=== PATIENT | male | born 1975 | race Caucasian/White ===

== ENCOUNTER 2021-08-18 07:13 | Outpatient (REF) | payer SELFPAY ==
--- NOTE | ~2021-08-18 | XR_ITS ---
EXAMINATION: XR CHEST CLINICAL INFORMATION: Medical examination. COMPARISON: None TECHNIQUE: 2 views of the chest were obtained. FINDINGS: No significant abnormality is noted involving the heart, lungs, mediastinum, bony thorax or soft tissues. XR/XR chest 2V IMPRESSION: Unremarkable chest examination.
[2021-08-18 11:29] LABS: Appearance Urine CLOUDY; Color Urine YELLOW; Glucose Urine UA NEG (NEG); Leukocyte Esterase Urine NEG (NEG); Nitrite Urine NEG (NEG); PH 5.5 (5.0-8.0); Specific Gravity - Urine >= 1.030 (1.005-1.025); Urine Blood NEG (NEG); Urine Ketones NEG (NEG); Urine Protein NEG (NEG-TRACE)
[2021-08-18 11:38] LABS: Hematocrit 48.1 % (42-52); Hemoglobin 16.1 g/dl (14.0-18.0); Mean Corpuscular HGB Conc 33.5 g/dl (31.0-36.0); Mean Corpuscular Hemoglobin 30.5 pg (27.0-33.0); Mean Corpuscular Volume 91.1 fL (80-98); Mean Platelet Volume 10.4 fL (9.4-12.4); Platelet Count 338 X10*3/uL (160-400); Red Blood Count 5.28 X10*6/uL (4.60-5.80); Red Cell Distribution Width 14.2 % (11.0-16.0); White Blood Count 10.3 X10*3/uL (4.8-10.8)
[2021-08-18 12:06] LABS: Alanine Aminotransferase 19 U/L (0-40); Albumin Level 4.4 g/dL (3.5-5.0); Alkaline Phosphatase 120 U/L (39-117); Anion Gap 12 (12-20); Aspartate Amino Transferase 17 U/L (5-37); Bilirubin Total 0.4 mg/dL (0.0-1.0); Blood Urea Nitrogen 14 mg/dL (9-16); Calcium 9.1 mg/dL (8.4-10.2); Carbon Dioxide 24 mmol/L (22-29); Chloride 108 mmol/L (96-108); Cholesterol 233 mg/dL; Estimated Glomerular Filt Rate > 60; Glucose Fasting 117 mg/dL (60-99); HDL Cholesterol 44 mg/dL; LDL Cholesterol Calculated 154 mg/dl; Potassium 4.9 mmol/L (3.3-5.1); Sodium 139 mmol/L (135-145); Triglycerides 178 mg/dL
[2021-08-18 12:07] LABS: Amorphous Sediment Urine 3+ /LPF; Mucus Urine 2+ /LPF; RBC Urine 0 /HPF (0); WBC Urine 0 /HPF (0-4)
== END 2021-08-18 07:14 | disposition home or self-care (01) ==
LOC: HO.HMGCLDS 07:13
PROVIDERS: PCP Internal Medicine; Visit Provider Internal Medicine
DX: Z00.00 Encounter for general adult medical examination without abnormal findings (principal); R42 Dizziness and giddiness; R05 Cough; I10 Essential (primary) hypertension
CPT/HCPCS: 36415; 71046; 80053; 80061; 81001; 85027

== ENCOUNTER 2022-01-02 07:36 | Outpatient (REF) | payer SELFPAY ==
[2022-01-02 11:44] LABS: Estimated Average Glucose 114 mg/dL; Hemoglobin A1c % 5.6 %
[2022-01-02 12:17] LABS: Alanine Aminotransferase 17 U/L (0-40); Albumin Level 4.5 g/dL (3.5-5.0); Alkaline Phosphatase 123 U/L (39-117); Anion Gap 14 (12-20); Aspartate Amino Transferase 19 U/L (5-37); Bilirubin Total 0.7 mg/dL (0.0-1.0); Blood Urea Nitrogen 14 mg/dL (9-16); Calcium 9.5 mg/dL (8.4-10.2); Carbon Dioxide 24 mmol/L (22-29); Chloride 106 mmol/L (96-108); Cholesterol 248 mg/dL; Estimated Glomerular Filt Rate > 60; Glucose Fasting 121 mg/dL (60-99); HDL Cholesterol 39 mg/dL; LDL Cholesterol Calculated 187 mg/dl; Potassium 5.5 mmol/L (3.3-5.1); Sodium 138 mmol/L (135-145); Total Protein 7.3 g/dL (6.5-8.0); Triglycerides 112 mg/dL
== END 2022-01-02 07:37 | disposition home or self-care (01) ==
LOC: HO.HMGCLDS 07:36
PROVIDERS: Visit Provider Internal Medicine
DX: I10 Essential (primary) hypertension (principal); E78.5 Hyperlipidemia, unspecified; R73.9 Hyperglycemia, unspecified
CPT/HCPCS: 36415; 80053; 80061; 83036

== ENCOUNTER 2024-02-27 12:35 | Outpatient (AMB) | payer SELFPAY ==
--- NOTE | 2024-02-27 12:37 | A.OFFPC_ITS ---
Vital Signs 02/27/24 12:38 Height 5 ft 10 in Weight 230 lb BMI 33.0 BP 124/74 Blood Pressure Location Rt brachial Position Sitting Pulse 97 Pulse Source Pulse Oximeter Pulse Oximetry (%) 96 Oxygen Delivery Method Room Air Intake Visit Reasons: L knee pain Intake Note: Pt is here today for a sick visit. Pt c/o L knee pain for couple of months. Pt states that since Saturday his knee was swollen. Pt states that its painful to the touch. Allergies No Known Allergies Allergy (Verified 01/04/22 08:54) Medication List - Last Reconciled 02/27/24 by Tonja Martínez MD meloxicam 15 mg PO DAILY Tobacco use date assessed: 02/27/24 HPI L knee pain HPI Details Pt c/o L knee pain swelling and redness started after prolonged kneeling at work 3 days ago. patient took 81 mg of aspirin 3 times a day for 2 days and the redness and pain improved but patient has persistent swelling. He denies pain in the knee when walking but reports discomfort and swelling when kneeling. He denies fever chills exposure to tick bite, rash or other joints swelling or pain [facility] Medical History (Updated 02/27/24 @ 13:19 by Tonja Martínez MD) Hyperkalemia Hyperglycemia Hyperlipidemia History of Helicobacter pylori infection Tobacco dependence Cough Annual physical exam Family History Mother DM type 2 (diabetes mellitus, type 2) Social History Patient Tobacco Use Status: Current everyday Tobacco user Tobacco use type: Cigarette Cigarette Packs Per Day: 20 e-Cigarette/Vaping Use: Never Used Questionnaire PHQ-9 Over the last 2 weeks, how often have you been bothered by any of the following problems? 40130 - PHQ-9 Billing: Patient declined-do not bill Source: Developed by Drs. Oscar Alcala, Joan Wei, Domenico Martines and colleagues, with an educational annie from [employer]. Thrive Questionnaire Date Thrive assessed: 02/27/24 What is your living situation today?: I choose not to answer this question Within the past 12 months, did the food you bought not last and you didn't have the money to get more?: I choose not to answer this question Do you have trouble paying for medicines?: I choose not to answer this question Do you have trouble getting transportation to medical appointments?: I choose not to answer this question Do you have trouble paying your heating and electricity bill?: I choose not to answer this question Do you have trouble taking care of your child, family member or friend?: I choose not to answer this question Do you have trouble with day-to-day activities such as bathing, preparing meals, shopping, managing finances, etc.?: I choose not to answer this question Are you currently unemployed and looking for a job?: I choose not to answer this question Are you interested in more education?: I choose not to answer this question THRIVE Score: 0 AUDIT C Alcohol Use Questionnaire (AUDIT-C) 1. How often do you have a drink containing alcohol?: Monthly or less 2. How many drinks containing alcohol do you have on a typical day when you are drinking?: 1 or 2 3. How often do you have six or more drinks on one occasion?: Never Total Score: 1 SARATH-7 AMB Questionnaire SARATH-7 Date SARATH - 7 assessed: 02/27/24 Source: Developed by Drs. Oscar Alcala, Joan Wei, Domenico Martines and colleagues, with an educational annie from [employer]. SARATH-7 Assessment Billing SARATH-7 Assessment Tool: pt declined-do not bill Review of Systems Const All systems reviewed & are unremarkable except as noted in HPI and below Reports no additional complaints Eyes Reports no additional complaints ENT Reports no additional complaints Card Reports no additional complaints Resp Reports no additional complaints GI Reports no additional complaints Reports no additional complaints Physical exam (Primary Care) Vital Signs: Last Vital Signs Pulse 97 02/27/24 12:38 BP 124/74 02/27/24 12:38 Pulse Ox 96 02/27/24 12:38 Oxygen Delivery Method Room Air 02/27/24 12:38 BMI result Body Mass Index 33.0 Tobacco/Smoking Status: Tobacco use Status Tobacco use date assessed 02/27/24 02/27/24 12:43 Patient Tobacco Use Status Current everyday Tobacco 02/27/24 12:43 Tobacco use type Cigarette 02/27/24 12:43 e-Cigarette/Vaping Use Never Used 02/27/24 12:43 Thrive Assessment: Date of Thrive Assessment Date Thrive assessed 02/27/24 02/27/24 12:45 Const General: no acute distress HENMT Head: Yes normal to inspection Neck Neck: Yes supple Resp Effort & Inspection: normal respiratory effort Auscultation: clear to auscultation bilaterally Cardio Rhythm: regular rhythm Heart sounds: S1 normal heart sound present and S2 normal heart sound present GI Inspection: Yes normal to inspection Palpation (GI): Soft to palpation Extrem Other: There is a full range of motion left knee, there is suprapatellar soft tissue swelling, no erythema or warmth or tenderness Assessment and Plan Assessment & Plan (1) Knee pain, left: Code(s): M25.562 - Pain in left knee Plan: Prepatellar bursitis check x-ray treat with meloxicam 15 mg daily for 10 days and patient was advised to avoid kneeling on a hard surface (2) Hyperlipidemia: Comment: Patient declined treatment 02/2024 Code(s): E78.5 - Hyperlipidemia, unspecified Plan: Patient will return for fasting blood work, low-cholesterol diet increase physical activity and taking fish oil supplement discussed with the patient. (3) Annual physical exam: Comment: Patient declined colonoscopy or Cologuard 02/2024 Code(s): Z00.00 - Encounter for general adult medical examination without abnormal findings Orders: Orders Lipid Panel Today M25.562 - Pain in left knee Complete Blood Count Auto Diff Today M25.562 - Pain in left knee PSA,Total (Free>4and<10) Today M25.562 - Pain in left knee UA w Microscopic Today M25.562 - Pain in left knee XR knee LT 2V Today M25.562 - Pain in left knee Comprehensive [place]. Panel Fast Today M25.562 - Pain in left knee Medications: New meloxicam 15 mg PO DAILY 10 tabs 0RF Coding Level of Care Code Est Pt Level 3 (45969) Diagnoses Knee pain, left M25.562 Hyperlipidemia E78.5 Annual physical exam Z00.00
[2024-02-27 12:38] VITALS: BP 124/74; PULSE 97; O2SAT 96; BMI 33.0
== END 2024-02-27 13:19 | disposition home or self-care (01) ==
PROVIDERS: PCP Internal Medicine; Visit Provider Internal Medicine
DX: M25.562 Pain in left knee (principal); E78.5 Hyperlipidemia, unspecified; Z00.00 Encounter for general adult medical examination without abnormal findings
CPT/HCPCS: 99213

== ENCOUNTER 2024-02-27 13:06 | Outpatient (REF) | payer SELFPAY ==
--- NOTE | ~2024-02-27 | XR_ITS ---
EXAMINATION: XR KNEE, LEFT CLINICAL INFORMATION: Left knee pain COMPARISON: None available. TECHNIQUE: AP and lateral views of the left knee. FINDINGS: BONES: Bony structures are intact. There is no focal bone destruction or periosteal reaction seen. JOINTS: Alignment of joints is normal. SOFT TISSUE: Soft tissue is normal. No radiopaque foreign body or abnormal air collection is seen. XR/XR knee LT 2V IMPRESSION: 1. Normal x-rays of left knee. No fracture or dislocation or signs of osteomyelitis are found.
== END 2024-02-27 13:07 | disposition home or self-care (01) ==
LOC: HO.HMGCX 13:06
PROVIDERS: PCP Internal Medicine; Visit Provider Internal Medicine
DX: M25.562 Pain in left knee (principal)
CPT/HCPCS: 73560

== ENCOUNTER 2024-02-28 07:34 | Outpatient (REF) | payer SELFPAY ==
[2024-02-28 10:39] LABS: MANUAL DIFF FLAG NO
[2024-02-28 10:47] LABS: Basophils Absolute Auto 0.1 X10*3/uL (0.0-0.2); Basophils Percent Auto 0.6 % (0-2); Eosinophils Absolute Auto 0.2 X10*3/uL (0.0-0.4); Eosinophils Percent Auto 1.5 % (0-4); Hemoglobin 16.2 g/dl (14.0-18.0); Imm Gran Abs Auto 0.04 X10*3/uL (0.00-0.03); Imm Gran Pct Auto 0.4 % (0.0-0.4); Lymphocytes Absolute Auto 2.3 X10*3/uL (1.2-4.9); Lymphocytes Percent Auto 23.7 % (20-40); Mean Corpuscular HGB Conc 33.1 g/dl (31.0-36.0); Mean Corpuscular Hemoglobin 30.1 pg (27.0-33.0); Mean Corpuscular Volume 90.9 fL (80.0-98.0); Mean Platelet Volume 10.1 fL (9.4-12.4); Monocytes Absolute Auto 0.8 X10*3/uL (0.1-1.2); Monocytes Percent Auto 8.5 % (2-11); Neutrophils Absolute Auto 6.5 x10*3/uL (2.0-8.3); Neutrophils Percent Auto 65.3 % (45-73); Platelet Count 333 X10*3/uL (160-400); Red Blood Count 5.39 X10*6/uL (4.60-5.80); Red Cell Distribution Width 14.3 % (11.0-16.0); White Blood Count 9.9 X10*3/uL (4.8-10.8)
[2024-02-28 11:13] LABS: Alanine Aminotransferase 31 U/L (0-40); Albumin Level 4.2 g/dL (3.5-5.0); Alkaline Phosphatase 102 U/L (39-117); Anion Gap 12 (12-20); Aspartate Amino Transferase 24 U/L (5-37); Bilirubin Total 0.5 mg/dL (0.0-1.0); Blood Urea Nitrogen 12 mg/dL (9-16); Calcium 9.3 mg/dL (8.4-10.2); Carbon Dioxide 25 mmol/L (22-29); Chloride 107 mmol/L (96-108); Cholesterol 237 mg/dL (<200); Estimated Glomerular Filt Rate > 60; Glucose Fasting 126 mg/dL (60-99); HDL Cholesterol 38 mg/dL (>40); LDL Cholesterol Calculated 168 mg/dL (<100); Potassium 4.7 mmol/L (3.3-5.1); Sodium 139 mmol/L (135-145); Total Protein 7.3 g/dL (6.5-8.0); Triglycerides 155 mg/dL (<150)
[2024-02-28 11:14] LABS: Appearance Urine Turbid; Color Urine Dark Yellow; Glucose Urine UA Negative (Negative); Leukocyte Esterase Urine Negative (Negative); Nitrite Urine Negative (Negative); Urine Blood Negative (Negative); Urine Ketones Trace mg/dL (Negative); Urine Protein Negative (Neg-Trace)
[2024-02-28 11:17] LABS: Bacteria Urine None Seen (None Seen); Hyaline Casts Urine 0-2 /LPF (0-2); RBC Urine 0-2 /HPF (0-2); Squamous Epithelial Cell Urine 0-2 /HPF (0-2); WBC Urine 0-5 /HPF (0-5)
[2024-02-28 11:26] LABS: PSA,Total (Free>4and<10) 0.92 ng/mL (0.00-4.00)
[2024-02-28 16:14] LABS: Estimated Average Glucose 117 mg/dL; Hemoglobin A1C 149.0274 umol/L; Hemoglobin A1c % 5.7 % (<6.0)
== END 2024-02-28 07:35 | disposition home or self-care (01) ==
LOC: HO.HMGCLDS 07:34
PROVIDERS: PCP Internal Medicine; Visit Provider Internal Medicine
DX: Z12.5 Encounter for screening for malignant neoplasm of prostate (principal); Z13.6 Encounter for screening for cardiovascular disorders; M25.562 Pain in left knee; R73.9 Hyperglycemia, unspecified
CPT/HCPCS: 36415; 80053; 80061; 81001; 83036; 84153; 85025

== ENCOUNTER 2024-03-13 10:15 | Outpatient (REF) | payer SELFPAY ==
--- NOTE | ~2024-03-13 | US_ITS ---
EXAMINATION: US VENOUS ULTRASOUND WITH DOPPLER LOWER EXTREMITY, LEFT CLINICAL INFORMATION: Left leg pain and swelling COMPARISON: None available. TECHNIQUE: Ultrasound of the deep veins is performed from the hip to the calf with compression sonography and color and pulse Doppler assessment. Spectral analysis with color-flow imaging is performed. FINDINGS: There is normal venous compression and respiratory variation and augmented flow. The visualized common femoral vein, superficial femoral vein, profunda femoral vein, popliteal vein, and the trifurcation region shows no evidence of deep venous thrombosis. If the patient's symptoms persist, followup ultrasound in 5 days 7 days might be of value to exclude proximal propagation from a non-visualized calf vein. There is no significant popliteal fossa cyst. Patient indicated pain and swelling inferior to the left patella. This region was interrogated with ultrasound. Soft tissue swelling and tiny amount of fluid seen. US/US venous duplex LE LT IMPRESSION: No DVT demonstrated in the left lower extremity. Soft tissue swelling/tiny fluid left in left infrapatellar region where patient indicates pain and swelling.
[2024-03-13 14:37] LABS: Erythrocyte Sedimentation Rate 9 MM/HR (0-15)
[2024-03-13 16:25] LABS: Uric Acid 5.9 mg/dL (3.4-7.0)
[2024-03-13 16:53] LABS: Rheumatoid Factor < 13.0 IU/mL (<15.0)
[2024-03-17 20:24] LABS: Lyme Blot 0.92 index
[2024-03-18 13:08] LABS: 18 KD (IgG) Band NON-REACTIVE; 23 KD (IgG) Band NON-REACTIVE; 23 KD (IgM) Band NON-REACTIVE; 28 KD (IgG) Band NON-REACTIVE; 30 KD (IgG) Band NON-REACTIVE; 39 KD (IgM) Band NON-REACTIVE; 39KD (IgG) Band NON-REACTIVE; 41 KD (IgM) Band NON-REACTIVE; 41KD (IgG) Band NON-REACTIVE; 45 KD (IgG) Band NON-REACTIVE; 58 KD (IgG) Band NON-REACTIVE; 66 KD (IgG) Band REACTIVE; 93 KD (IgG) Band NON-REACTIVE; Lyme IgG Blot Interp NEGATIVE (NEGATIVE); Lyme IgM Blot Interp NEGATIVE (NEGATIVE)
[2024-03-18 13:09] LABS: Lyme Abs Screen EQUIVOCAL
== END 2024-03-13 10:16 | disposition home or self-care (01) ==
LOC: HO.HMGCX 10:15
PROVIDERS: PCP Internal Medicine; Visit Provider Internal Medicine
DX: M79.605 Pain in left leg (principal); M25.469 Effusion, unspecified knee; M79.89 Other specified soft tissue disorders
CPT/HCPCS: 36415; 84550; 85652; 86431; 86617; 86618; 93971

== ENCOUNTER 2024-03-17 07:45 | Outpatient (AMB) | payer SELFPAY ==
[2024-03-17 07:55] VITALS: BMI 33.0
--- NOTE | 2024-03-17 07:55 | MHC.OFFVIS ---
Vital Signs 03/17/24 07:55 Height 5 ft 10 in Weight 230 lb BMI 33.0 Intake Visit Reasons: M70.42 Prepatellar bursitis, left knee Intake Note: Kiet is a 49 year old male who presents as a new patient with Left knee pain and swelling. The patient states that he noticed swelling along the anterior aspect of his left knee starting about 3 weeks ago. 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 He denies any fevers or chills. He has been taking meloxicam which gives him mild relief. The patient has not worked over the last week and states that his swelling has improved significantly. The patient has discomfort when he is kneeling on his knee but minimal discomfort when he is ambulating. Allergies No Known Allergies Allergy (Verified 03/17/24 08:02) Medication List - Last Reconciled 03/17/24 by Gibson Rosenbaum MD methylprednisolone (Medrol ([place])) PO PER [facility] Medical History (Updated 03/10/24 @ 09:11 by Tonja Martínez MD) Hyperkalemia Hyperglycemia Hyperlipidemia History of Helicobacter pylori infection Tobacco dependence Cough Annual physical exam Family History Mother DM type 2 (diabetes mellitus, type 2) Social History (Updated 03/17/24 @ 08:03 by Maria L Garrido CMA) Patient Tobacco Use Status: Current everyday Tobacco user Tobacco use type: Cigarette Cigarette Packs Per Day: 20 e-Cigarette/Vaping Use: Never Used Current occupation: constuction , Right hand dominate Physical Exam Vital Signs: BMI result Body Mass Index 33.0 Const Other: Well-nourished well-developed very friendly male awake alert and oriented x3 in no acute distress Extrem Other: Bilateral lower extremity examination shows good capillary refill, no skin lesions noted, normal sensation light touch Left knee examination shows a minimal effusion, moderate swelling within his pre patella bursa, no erythema, mild tenderness to palpation, negative Griselda's test, no open skin lesions, full range of motion when compared to his right knee with minimal discomfort, no instability Results Reviewed Results Reviewed: X-rays of the patient's left knee show minimal joint space narrowing, no acute bony abnormalities Assessment & Plan Assessment & Plan (1) Prepatellar bursitis of left knee: Code(s): M70.42 - Prepatellar bursitis, left knee Category: Medical Plan Mr. Robertson presents with left knee pain and swelling due to prepatellar bursitis. I had a lengthy discussion patient regarding the treatment options. He wishes to hold off on an aspiration for now. I did give him a prescription for a Medrol Dosepak. Activity modifications and icing were discussed at length with the patient. He will contact me prior to his follow-up appointment in 2 weeks should any questions or concerns arise. Feel free to call me at any time should questions regarding his orthopedic management arise. Thank you very much for asking me to see this very friendly gentleman. I spent 22 minutes in reviewing the patient's records and imaging studies, seeing the patient and documenting in the medical record. Medications: New methylprednisolone (Medrol ([place])) PO PER [facility] DIR 21 ea 0RF
== END 2024-03-17 08:24 | disposition home or self-care (01) ==
PROVIDERS: PCP Internal Medicine; Visit Provider Orthopaedic Surgery
DX: M70.42 Prepatellar bursitis, left knee (principal)
CPT/HCPCS: 99202

== ENCOUNTER → 2024-03-17 07:45 | Outpatient (BNVA) | payer SELFPAY | PROVIDERS: PCP Internal Medicine; Visit Provider Orthopaedic Surgery | DX: M70.42 Prepatellar bursitis, left knee (principal) | CPT/HCPCS: 99202 ==